=== PATIENT | female | born 1965 | race African-American/Black ===

== ENCOUNTER 2017-11-17 14:42 | Emergency (ER) | payer OTHER, MEDICAID ==
[~2017-11-17] VITALS: Ht 160 cm; Wt 78.0 kg
[2017-11-17] MEDS ORDERED: SODIUM CHLORIDE 0.9% 1,000 ML IV ONE (15:40)
[2017-11-17] MEDS ORDERED: KETOROLAC 30MG/ML VIAL IV STA (15:40)
[2017-11-17 15:46] LABS: CHLORIDE 104 mEq/L (98-107)
[2017-11-17 15:47] LABS: BASOPHILS % 0.5 % (0.0-2.0); EOSINOPHILS % 1.3 % (0.0-5.0); HEMOGLOBIN. 11.5 g/dL (12.0-16.0); LYMPHOCYTES % 23.7 % (20.0-50.0); MEAN CORPUSCULAR HEMOGLOBIN 23.1 pg (28.0-32.0); MEAN CORPUSCULAR VOLUME 70.5 fL (81.0-99.0); MEAN PLATELET VOLUME 8.6 fl (7.4-10.4); NEUTROPHILS % 66.5 % (40.0-76.0); PLATELET 227 x1000/uL (130-400); RED BLOOD CELL COUNT 4.97 mill/uL (4.2-5.4); RED CELL DISTRIBUTION WIDTH 16.7 % (11.6-14.6)
[2017-11-17 15:49] LABS: INR 1.1
[2017-11-17 16:13] LABS: CLARITY URINE CLEAR (CLEAR); COLOR URINE DARK YELLOW (YELLOW); KETONES URINE 3+ (NEGATIVE); LEUKOCYTE ESTERASE URINE 1+ (NEGATIVE); NITRITE URINE NEGATIVE (NEGATIVE); OCCULT BLOOD URINE 2+ (NEGATIVE); PH URINE 5.5 (4.5-8.0); PROTEIN URINE 1+ (NEGATIVE)
[2017-11-17 16:25] LABS: *BARBITURATES SCREEN URINE NEGATIVE (NEGATIVE)
[2017-11-17 16:26] LABS: *BENZODIAZEPINES SCREEN URINE NEGATIVE (NEGATIVE); *COCAINE SCREEN URINE NEGATIVE (NEGATIVE); CANNABINOID URINE SCREEN NEGATIVE (NEGATIVE); METHADONE URINE SCREEN NEGATIVE (NEGATIVE); OPIATES URINE SCREEN NEGATIVE (NEGATIVE); PHENCYCLIDINE URINE SCREEN NEGATIVE (NEGATIVE)
[2017-11-17 16:27] LABS: *AMPHETAMINES SCREEN URINE NEGATIVE (NEGATIVE)
[2017-11-17 19:19] VITALS: BP 116/69
== END 2017-11-17 19:14 | disposition home or self-care (01) ==
LOC: ER 15:40
DX: D25.9 Leiomyoma of uterus, unspecified (principal); N39.0 Urinary tract infection, site not specified; K76.89 Other specified diseases of liver; N20.0 Calculus of kidney
CPT/HCPCS: 36415; 74176; 76830; 76856; 80053; 80305; 81003; 83690; 85025; 85610; 96361; 96374; 99285; J1885; J7030; Z7610

== ENCOUNTER 2017-12-14 00:56 | Emergency (ER) | payer OTHER, MEDICAID ==
[~2017-12-14] VITALS: Ht 160 cm; Wt 78.0 kg
[2017-12-14] MEDS ORDERED: MORPHINE SULFATE 4 MG/ML CPJ (NOT FOR IM USE) IV STA (03:07)
[2017-12-14] MEDS ORDERED: ONDANSETRON HCL 4MG/2ML VIAL IV STA (03:07)
[2017-12-14] MEDS ORDERED: SODIUM CHLORIDE 0.9% 1,000 ML IV ONE (03:07)
[2017-12-14 03:59] LABS: BASOPHILS % 0.4 % (0.0-2.0); EOSINOPHILS % 2.1 % (0.0-5.0); HEMATOCRIT. 32.2 % (36.0-48.0); HEMOGLOBIN. 10.6 g/dL (12.0-16.0); LYMPHOCYTES % 19.8 % (20.0-50.0); MEAN CORPUSCULAR VOLUME 70.1 fL (81.0-99.0); MEAN PLATELET VOLUME 7.9 fl (7.4-10.4); MONOCYTES % 3.7 % (2.0-8.0); PLATELET 277 x1000/uL (130-400); RED CELL DISTRIBUTION WIDTH 17.7 % (11.6-14.6)
[2017-12-14 04:06] LABS: CHLORIDE 108 mEq/L (98-107)
[2017-12-14 04:51] LABS: CLARITY URINE CLEAR (CLEAR); COLOR URINE YELLOW (YELLOW); KETONES URINE 1+ (NEGATIVE); LEUKOCYTE ESTERASE URINE NEGATIVE (NEGATIVE); NITRITE URINE NEGATIVE (NEGATIVE); OCCULT BLOOD URINE TRACE (NEGATIVE); PH URINE >=9.0 (4.5-8.0); PROTEIN URINE NEGATIVE (NEGATIVE); SPECIFIC GRAVITY URINE 1.014 (1.005-1.030); UROBILINOGEN URINE 0.2 E.U./dL (0.2-1.0)
[2017-12-14] MEDS ORDERED: MAGNESIUM/ALUMINUM HYDROXIDE/SIMETHICONE 30ML UDC PO STA (05:05)
[2017-12-14] MEDS ORDERED: VISCOUS LIDOCAINE 2% 15 ML UDC PO STA (05:05)
[2017-12-14] MEDS ORDERED: MORPHINE SULFATE 4 MG/ML CPJ (NOT FOR IM USE) IV ONE (05:15)
[2017-12-14] MEDS ORDERED: KETOROLAC 30MG/ML VIAL IV ONE (05:15)
[2017-12-14 05:33] VITALS: BP 136/99
== END 2017-12-14 06:55 | disposition home or self-care (01) ==
LOC: ER 00:56
DX: D25.9 Leiomyoma of uterus, unspecified (principal)
CPT/HCPCS: 36415; 80053; 81003; 83690; 85025; 96361; 96374; 96375; 96376; 99284; J1885; J2270; J2405; J7030; Z7610

== ENCOUNTER 2020-09-26 03:57 | Emergency (ER) | payer OTHER, MEDICARE, MEDICAID ==
[~2020-09-26] VITALS: Ht 160 cm; Wt 93.0 kg
[2020-09-26] MEDS ORDERED: MORPHINE SULFATE 4 MG/ML CPJ (NOT FOR IM USE) IV STA (04:54)
[2020-09-26] MEDS ORDERED: ONDANSETRON HCL 4MG/2ML INJ IV STA (04:54)
[2020-09-26] MEDS ORDERED: SODIUM CHLORIDE 0.9% 1,000 ML IV ONE (05:00)
[2020-09-26 05:18] LABS: BASOPHILS % 0.5 % (0.0-2.0); EOSINOPHILS % 3.1 % (0.0-5.0); HEMATOCRIT. 33.4 % (36.0-48.0); HEMOGLOBIN. 10.9 g/dL (12.0-16.0); LYMPHOCYTES % 15.2 % (20.0-50.0); MEAN CORPUSCULAR HEMOGLOBIN 24.9 pg (28.0-32.0); MEAN CORPUSCULAR VOLUME 76.1 fL (81.0-99.0); MEAN PLATELET VOLUME 8.4 fl (7.4-10.4); MONOCYTES % 6.2 % (2.0-8.0); PLATELET 183 x1000/uL (130-400); RED BLOOD CELL COUNT 4.39 mill/uL (4.2-5.4); RED CELL DISTRIBUTION WIDTH 18.5 % (11.6-14.6)
[2020-09-26 05:21] LABS: CHLORIDE 108 mEq/L (98-107)
[2020-09-26 05:24] LABS: INR 1.1; PROTHROMBIN TIME 11.8 sec (9.6-11.0)
[2020-09-26] MEDS ORDERED: IOHEXOL-300 100 ML BOTTLE ONE (06:21)
[2020-09-26 06:42] LABS: CLARITY URINE CLEAR (CLEAR); COLOR URINE YELLOW (YELLOW); KETONES URINE 2+ (NEGATIVE); LEUKOCYTE ESTERASE URINE 2+ (NEGATIVE); NITRITE URINE NEGATIVE (NEGATIVE); OCCULT BLOOD URINE 2+ (NEGATIVE); PROTEIN URINE 1+ (NEGATIVE); SPECIFIC GRAVITY URINE 1.021 (1.005-1.030); UROBILINOGEN URINE 0.2 E.U./dL (0.2-1.0)
[2020-09-26] MEDS ORDERED: MORPHINE SULFATE 4 MG/ML CPJ (NOT FOR IM USE) IV ONE (07:00)
[2020-09-26 09:39] VITALS: BP 159/79
== END 2020-09-26 09:30 ==
LOC: ER 03:57 → CANBEDREQ 08:56 → ER 09:30
DX: R10.84 Generalized abdominal pain (principal); M54.9 Dorsalgia, unspecified; R11.2 Nausea with vomiting, unspecified; Z85.43 Personal history of malignant neoplasm of ovary
CPT/HCPCS: 36415; 71045; 74177; 80053; 81003; 83605; 83690; 85025; 85610; 87086; 93005; 96361; 96374; 96375; 96376; 99285; J2270; J2405; J7030; Q9967